=== PATIENT | male | born 1980 | race Two or more races ===

== ENCOUNTER → 2017-06-07 | Outpatient (REF) | payer OTHER ==
[2017-06-07 10:46] LABS: SPERM ABNORMAL FORMS WBC'S NOTED
[2017-06-07 10:47] LABS: IMMMOTILE SPERM CENTRIFUGED PRESENT (ABSENT); IMMOTILE SPERM PRESENT (ABSENT); MOTILE SPERM PRESENT (ABSENT); MOTILE SPERM CENTRIFUGED PRESENT (ABSENT)
== END ==
LOC: M SMT 10:29
PROVIDERS: ATTEND Nurse Practitioner Women's Health
DX: Z30.8 Encounter for other contraceptive management (principal)

== ENCOUNTER → 2017-07-28 | Outpatient (REF) | payer OTHER | LOC: M SMT 13:47 | PROVIDERS: ATTEND Urology | DX: Z30.2 Encounter for sterilization (principal) ==

== ENCOUNTER → 2017-09-29 | Outpatient (REF) | payer OTHER ==
[2017-09-29 13:28] LABS: IMMMOTILE SPERM CENTRIFUGED ABSENT (ABSENT); IMMOTILE SPERM ABSENT (ABSENT); MOTILE SPERM ABSENT (ABSENT); MOTILE SPERM CENTRIFUGED ABSENT (ABSENT)
== END ==
LOC: M SMT 12:29
PROVIDERS: ATTEND Urology
DX: Z30.2 Encounter for sterilization (principal)